=== PATIENT | female | born 1940 | race Caucasian/White ===

== ENCOUNTER 2023-06-04 16:19 | Emergency (ER) | payer MEDICARE, OTHER ==
[~2023-06-04] VITALS: Ht 152.4 cm; Wt 68.6 kg
[2023-06-04 17:05] VITALS: TEMP 98.1
[2023-06-04 18:17] LABS: BASO % 0.2 % (0.0-1.0); EOS % 0.3 % (0.0-3.0); HEMATOCRIT 36.9 % (36.0-47.0); HEMOGLOBIN 12.4 g/dl (12.0-15.5); LYMPH # 0.9 10^3/uL (1.5-5.0); MEAN CORPUSCULAR HEMOGLOBIN 27.7 pg (27.0-33.0); MEAN CORPUSCULAR HGB CONC 33.6 g/dl (32.0-36.5); MEAN CORPUSCULAR VOLUME 82.4 fl (80.0-96.0); MONO # 0.5 10^3/uL (0.0-0.8); MONO % 5.8 % (2.0-8.0); NEUTROPHILS # 7.1 10^3/uL (1.5-8.5); NEUTROPHILS % 83.1 % (36.0-66.0); PLATELET COUNT, AUTOMATED 238 10^3/uL (150-450); RED BLOOD COUNT 4.48 10^6/uL (4.00-5.40); WHITE BLOOD COUNT 8.6 10^3/uL (4.0-10.0)
[2023-06-04] MEDS: niCARdipine IV 40 MG in IV 1 EA IV SCH (18:26)
[2023-06-04 18:30] LABS: INR 1.04; PARTIAL THROMBOPLASTIN TIME 27.9 SECONDS (24.8-34.2); PROTHROMBIN TIME 13.3 SECONDS (12.5-14.5)
[2023-06-04] MEDS: NS IV ONE (18:34)
[2023-06-04] MEDS: DESMOPRESSIN ACETATE IV ONE (18:34)
[2023-06-04 18:37] LABS: CK-MB VALUE MASS 1.6 NG/ML (<3.6)
[2023-06-04 18:38] LABS: MB/CK RELATIVE INDEX 1.21 (< OR =4)
[2023-06-04 18:45] VITALS: BP 129/58
[2023-06-04 18:49] VITALS: O2SAT 97
[2023-06-04 18:59] LABS: ALBUMIN 3.6 G/DL (3.2-5.2); BILIRUBIN,DIRECT 0.2 MG/DL (<0.4); BILIRUBIN,TOTAL 0.4 MG/DL (0.3-1.2); CALCIUM LEVEL 9.6 MG/DL (8.3-10.6); CREATININE FOR GFR 0.99 MG/DL (0.55-1.30); GLOMERULAR FILTRATION RATE 57.5 (>32); POTASSIUM SERUM 3.4 MMOL/L (3.5-5.1); TOTAL PROTEIN 6.8 G/DL (5.7-8.2)
== END 2023-06-04 19:15 | disposition short-term general hospital (02) ==
LOC: M ED 16:19 → EDBD 16:19 → M ED 19:15
DX: S06.369A Traumatic hemorrhage of cerebrum, unspecified, with loss of consciousness of unspecified duration, initial encounter (principal); I16.0 Hypertensive urgency; W10.8XXA Fall (on) (from) other stairs and steps, initial encounter; Y92.009 Unspecified place in unspecified non-institutional (private) residence as the place of occurrence of the external cause; Y93.89 Activity, other specified; Y99.9 Unspecified external cause status; E11.9 Type 2 diabetes mellitus without complications; Z88.5 Allergy status to narcotic agent
CPT/HCPCS: 70450; 71045; 72125; 80048; 80076; 82550; 82553; 84484; 85025; 85610; 85730; 86850; 86900; 86901; 93005; 93041; 94760; 96365; 96368; 99285; J2597